=== PATIENT | female | born 1955 | race African-American/Black ===

== ENCOUNTER 2022-10-01 22:05 | Inpatient (IN) | payer OTHER, MEDICAID ==
[~2022-10-01] VITALS: Ht 162.6 cm; Wt 88.2 kg
[2022-10-01 23:54] LABS: Basophils # (auto) 0.2 10 ^3/uL (0-0.2); Basophils % (auto) 1.3 % (0.0-2.0); Eosinophils # (auto) 0 10 ^3/uL (0-0.8); Eosinophils % (auto) 0.2 % (0.0-7.0); Hematocrit 45.2 % (36.0-46.0); Hemoglobin 15.1 g/dL (12.2-16.2); Lymphocytes # (auto) 1.1 10 ^3/uL (0.4-5.4); Lymphocytes % (auto) 7.3 % (10.0-50.0); Mean Corpuscular Hemoglobin 30.7 pg (28.0-32.0); Mean Corpuscular Hgb Conc. 33.4 g/dL (32.0-36.0); Mean Corpuscular Volume 91.7 fL (80.0-100.0); Monocytes # (auto) 0.9 10 ^3/uL (0-1.3); Monocytes % (auto) 6.1 % (0.0-12.0); Neutrophils # (auto) 13.2 10 ^3/uL (1.6-8.6); Neutrophils % (auto) 85.1 % (37.0-80.0); Nucleated Red Blood Cells % 0.1 %; Red Blood Cells 4.92 10^6/uL (4.0-5.20); Red Cell Distribution Width 13.6 % (11.8-14.3); White Blood Cell 15.5 10^3/uL (4.4-10.8)
[2022-10-02 00:11] LABS: BUN/Creatinine Ratio 30.4; Calcium 9.5 mg/dL (8.5-10.1); Potassium 3.7 mmol/L (3.5-5.1)
[2022-10-02 00:23] LABS: Bilirubin, Total 1.2 mg/dL (0.2-1.0); Total Protein 7.8 g/dL (6.4-8.2)
[2022-10-02 03:12] LABS: Urine Bacteria FEW /hpf (None Seen); Urine Blood 1+ /uL (Negative); Urine Mucus FEW (None Seen); Urine Specific Gravity 1.029 (1.001-1.035); Urine WBC 15 /hpf (0 - 5)
[2022-10-02] MEDS ORDERED: cefTRIAXone SOD 1,000 MG VL IV ONE (03:45)
[2022-10-02] MEDS ORDERED: KETOROLAC TROMETH 30 MG/ML 1ML VIAL IV ONE (05:45)
[2022-10-02] MEDS ORDERED: ACETAMINOPHEN 325 MG TAB PO PRN (06:00)
[2022-10-02] MEDS ORDERED: HYDROcodone-ACET 5/325MG TAB PO PRN (06:00)
[2022-10-02] MEDS ORDERED: ONDANSETRON HCL 4 MG/2 ML VIAL IV PRN (06:00)
[2022-10-02] MEDS ORDERED: DEXTROSE (50%) 50ML SYRG IV PRN (06:00)
[2022-10-02] MEDS ORDERED: DOCUSATE SOD 100 MG CAP PO PRN (06:00)
[2022-10-02] MEDS ORDERED: SODIUM CHLORIDE 0.9% 1,000 ML IV SCH (06:00)
[2022-10-02 06:30] LABS: Basophils # (auto) 0.1 10 ^3/uL (0-0.2); Basophils % (auto) 0.4 % (0.0-2.0); Eosinophils # (auto) 0 10 ^3/uL (0-0.8); Eosinophils % (auto) 0.1 % (0.0-7.0); Hematocrit 45.8 % (36.0-46.0); Hemoglobin 15.7 g/dL (12.2-16.2); Lymphocytes # (auto) 1.8 10 ^3/uL (0.4-5.4); Lymphocytes % (auto) 11.4 % (10.0-50.0); Mean Corpuscular Hemoglobin 31.6 pg (28.0-32.0); Mean Corpuscular Hgb Conc. 34.2 g/dL (32.0-36.0); Mean Corpuscular Volume 92.5 fL (80.0-100.0); Monocytes # (auto) 1.3 10 ^3/uL (0-1.3); Monocytes % (auto) 8.3 % (0.0-12.0); Neutrophils # (auto) 12.8 10 ^3/uL (1.6-8.6); Neutrophils % (auto) 79.8 % (37.0-80.0); Red Blood Cells 4.95 10^6/uL (4.0-5.20); Red Cell Distribution Width 13.8 % (11.8-14.3); White Blood Cell 16.1 10^3/uL (4.4-10.8)
[2022-10-02] MEDS ORDERED: MORPHINE SULFATE INJ 2 MG/ml SYRG IV PRN (06:45)
[2022-10-02] MEDS ORDERED: NITROGLYCERIN 0.4 MG SL TAB SL PRN (06:45)
[2022-10-02] MEDS: ACCU-CHEK COMFORT CURVE STRIP VI SCH ×3 (06:53→17:30)
[2022-10-02] MEDS: InsuLIN REG 1unit/0.01ml Soln (100units/ml) SC SCH ×4 (06:53→22:00)
[2022-10-02 07:01] LABS: Potassium 3.6 mmol/L (3.5-5.1)
[2022-10-02 07:09] LABS: Albumin 3.8 g/dL (3.4-5.0); BUN/Creatinine Ratio 31.6; Bilirubin, Total 1.2 mg/dL (0.2-1.0); Calcium 9.6 mg/dL (8.5-10.1); Total Protein 8.1 g/dL (6.4-8.2)
[2022-10-02] MEDS: hydrALAZINE HCL 20 MG/ML VL IV PRN ×2 (08:08→16:20)
[2022-10-02] MEDS: cefTRIAXone 1GM/50ML D5W 50 ML IV SCH (09:06)
[2022-10-02] MEDS: ENOXAPARIN SOD 40 MG/0.4 ML SYRINGE SC SCH (09:18)
[2022-10-02] MEDS: METOPROLOL TARTRATE 25 MG TAB PO SCH (09:20)
[2022-10-02] MEDS ORDERED: amLODIPine BESYLATE 5 MG TAB PO SCH (10:00)
[2022-10-02] MEDS ORDERED: FAMOTIDINE (10MG/ML) 2ML VL IV SCH (10:00)
[2022-10-02] MEDS ORDERED: NALBUPHINE HCL 10 MG/1ml INJECTION IV ONE (10:45)
[2022-10-02 13:03] LABS: Magnesium 2.3 mg/dL (1.6-2.6)
[2022-10-02] MEDS: OXYCODONE W/ ACETAMINOPHEN 5/325MG TABLET PO PRN (17:22)
[2022-10-02] MEDS: GABAPENTIN 300 MG CAP PO SCH (17:40)
[2022-10-03] MEDS: GABAPENTIN 300 MG CAP PO SCH ×5 (03:01→21:46)
[2022-10-03] MEDS: METOPROLOL TARTRATE 25 MG TAB PO SCH ×3 (03:02→22:01)
[2022-10-03] MEDS: OXYCODONE W/ ACETAMINOPHEN 5/325MG TABLET PO PRN ×3 (03:03→21:46)
[2022-10-03] MEDS: methylPREDNISolone SOD SUCC 40 MG/ML VL IV SCH ×3 (03:03→21:47)
[2022-10-03] MEDS: ACCU-CHEK COMFORT CURVE STRIP VI SCH ×5 (03:04→22:14)
[2022-10-03 05:32] LABS: Basophils # (auto) 0.1 10 ^3/uL (0-0.2); Basophils % (auto) 0.5 % (0.0-2.0); Eosinophils # (auto) 0 10 ^3/uL (0-0.8); Eosinophils % (auto) 0.1 % (0.0-7.0); Hematocrit 43.2 % (36.0-46.0); Hemoglobin 14.4 g/dL (12.2-16.2); Lymphocytes # (auto) 1.2 10 ^3/uL (0.4-5.4); Lymphocytes % (auto) 7.7 % (10.0-50.0); Mean Corpuscular Hemoglobin 31.3 pg (28.0-32.0); Mean Corpuscular Hgb Conc. 33.4 g/dL (32.0-36.0); Mean Corpuscular Volume 93.6 fL (80.0-100.0); Monocytes # (auto) 0.8 10 ^3/uL (0-1.3); Monocytes % (auto) 5.2 % (0.0-12.0); Neutrophils % (auto) 86.5 % (37.0-80.0); Red Blood Cells 4.61 10^6/uL (4.0-5.20); Red Cell Distribution Width 13.7 % (11.8-14.3)
[2022-10-03 05:51] LABS: Potassium 3.9 mmol/L (3.5-5.1)
[2022-10-03 06:00] LABS: Albumin 3.5 g/dL (3.4-5.0); BUN/Creatinine Ratio 37.2; Bilirubin, Total 1.4 mg/dL (0.2-1.0); Calcium 9.6 mg/dL (8.5-10.1); Total Protein 7.4 g/dL (6.4-8.2)
[2022-10-03] MEDS: InsuLIN REG 1unit/0.01ml Soln (100units/ml) SC SCH ×4 (06:56→22:00)
[2022-10-03] MEDS: cefTRIAXone 1GM/50ML D5W 50 ML IV SCH (09:27)
[2022-10-03] MEDS: ENOXAPARIN SOD 40 MG/0.4 ML SYRINGE SC SCH (10:30)
[2022-10-03] MEDS: LOSARTAN POTASSIUM 50 MG TAB PO SCH (10:31)
[2022-10-03] MEDS: NIFEdipine ER 30 MG TAB PO SCH (10:34)
[2022-10-03] MEDS: METHOCARBAMOL 500 MG TAB PO SCH (21:47)
[2022-10-03 22:00] VITALS: BP 124/55
[2022-10-04] MEDS: GABAPENTIN 300 MG CAP PO SCH ×2 (04:56→11:48)
[2022-10-04] MEDS: METHOCARBAMOL 500 MG TAB PO SCH ×2 (04:59→14:00)
[2022-10-04 05:00] VITALS: BP 117/96
[2022-10-04] MEDS: OXYCODONE W/ ACETAMINOPHEN 5/325MG TABLET PO PRN ×2 (05:05→11:48)
[2022-10-04] MEDS: ACCU-CHEK COMFORT CURVE STRIP VI SCH ×2 (05:19→11:43)
[2022-10-04] MEDS: InsuLIN REG 1unit/0.01ml Soln (100units/ml) SC SCH ×2 (05:19→11:30)
[2022-10-04 09:00] VITALS: BP 104/58
[2022-10-04] MEDS: cefTRIAXone 1GM/50ML D5W 50 ML IV SCH (09:24)
[2022-10-04] MEDS: methylPREDNISolone SOD SUCC 40 MG/ML VL IV SCH (09:25)
[2022-10-04] MEDS: NIFEdipine ER 30 MG TAB PO SCH ×2 (09:25→10:00)
[2022-10-04] MEDS: ENOXAPARIN SOD 40 MG/0.4 ML SYRINGE SC SCH (09:25)
[2022-10-04] MEDS: LOSARTAN POTASSIUM 50 MG TAB PO SCH ×2 (09:44→10:00)
[2022-10-04] MEDS: METOPROLOL TARTRATE 25 MG TAB PO SCH ×2 (09:44→10:00)
[2022-10-04] MEDS ORDERED: CIPR-173 PO (10:05)
[2022-10-04] MEDS ORDERED: MET25T PO (10:05)
[2022-10-04] MEDS ORDERED: GABA300C10 PO (10:05)
[2022-10-04] MEDS ORDERED: HYDR-4902 PO (10:05)
[2022-10-04] MEDS ORDERED: LOSA-69 PO (10:05)
[2022-10-04] MEDS ORDERED: METH500T22 PO (10:05)
[2022-10-04] MEDS ORDERED: NIFE1TAB31 PO (10:05)
[2022-10-04] MEDS ORDERED: BLOO1KIT56 XX (12:46)
[2022-10-04 13:54] VITALS: BP 116/61
== END 2022-10-04 15:28 | disposition home or self-care (01) | DRG 305 ==
LOC: EDBD 22:05 → ER 22:05 → TELE 10-02 06:36 → TELE-EAST 10-03 18:06
PROVIDERS: ADMIT Nurse Practitioner Family; ATTEND Hospitalist
DX: I16.9 Hypertensive crisis, unspecified (principal); N39.0 Urinary tract infection, site not specified; I11.0 Hypertensive heart disease with heart failure; Z20.822 Contact with and (suspected) exposure to COVID-19; E66.9 Obesity, unspecified; I50.9 Heart failure, unspecified; E11.9 Type 2 diabetes mellitus without complications; J45.909 Unspecified asthma, uncomplicated; Z68.33 Body mass index [BMI] 33.0-33.9, adult
CPT/HCPCS: 36415; 70450; 70551; 71045; 72125; 80053; 80061; 81001; 82962; 83036; 83735; 83880; 84443; 84484; 85025; 87426; 93005; 93306; 96365; 96375; 97163; G0378; J0696; J1885; J3490